=== PATIENT | female | born 1970 | race Caucasian/White ===

== ENCOUNTER 2021-07-05 09:22 | Outpatient (CLI) | payer MEDICAID | END 2021-07-05 23:59 | disposition home or self-care (01) | LOC: RAD 09:22 | PROVIDERS: ATTEND Nurse Practitioner | DX: L98.492 Non-pressure chronic ulcer of skin of other sites with fat layer exposed (principal) | CPT/HCPCS: 73030 ==

== ENCOUNTER 2023-10-05 09:50 | Outpatient (CLI) | payer MEDICAID | END 2023-10-05 23:59 | disposition home or self-care (01) | LOC: CARD DIAG 09:50 | PROVIDERS: ATTEND Internal Medicine | DX: I08.0 Rheumatic disorders of both mitral and aortic valves (principal); R76.8 Other specified abnormal immunological findings in serum | CPT/HCPCS: 71046; 93306 ==

== ENCOUNTER 2023-10-21 10:15 | Outpatient (CLI) | payer MEDICAID ==
[~2023-10-21] VITALS: Ht 160 cm; Wt 56.7 kg
[2023-10-21] MEDS: albuterol 2.5 MG/3 ML nebule NEB ONE (10:52)
[2023-10-21 10:53] VITALS: PULSE 86; RESP 18; O2SAT 97
== END 2023-10-21 23:59 | disposition home or self-care (01) ==
LOC: RT 10:15
PROVIDERS: ATTEND Family Medicine
DX: R76.8 Other specified abnormal immunological findings in serum (principal)
CPT/HCPCS: 94060; 94729; 94760